=== PATIENT | female | born 1990 | race American Indian/Alaskan Native ===

== ENCOUNTER 2017-07-19 15:37 | Emergency (ER) | payer SELFPAY ==
[2017-07-19] MEDS ORDERED: NACL 0.9% 1000 ML 1,000 ML IV ONE (15:45)
[2017-07-19 16:15] LABS: Basophils % (Auto) 0.5 % (0.0-1.8); Eosinophils % (Auto) 0.3 % (0.0-4.3); Hematocrit 43.1 % (30.3-42.9); Hemoglobin 14.3 gm/dl (10.1-14.3); Lymphocytes # (Auto) 1.4 K/mm3 (1.2-5.4); Mean Corpuscular HGB Conc 33 % (30-34); Mean Corpuscular Hemoglobin 32 pg (28-32); Mean Corpuscular Volume 96 fl (79-97); Monocytes # (Auto) 0.3 K/mm3 (0.0-0.8); Monocytes % (Auto) 3.4 % (0.0-7.3); Platelet Count 271 K/mm3 (140-440); Red Blood Count 4.49 M/mm3 (3.65-5.03); Red Cell Distribution Width 13.3 % (13.2-15.2)
[2017-07-19 16:34] LABS: Alanine Aminotransferase 10 units/L (7-56); Albumin 4.9 g/dL (3.9-5); BUN/Creatinine Ratio 13; Blood Urea Nitrogen 8 mg/dL (7-17); Calcium 9.8 mg/dL (8.4-10.2); Hemolysis Index 6; Lipase 26 units/L (13-60)
[2017-07-19 16:35] LABS: INR 0.99 (0.87-1.13); Partial Thromboplastin Time 29.5 Sec. (24.2-36.6)
[2017-07-19] MEDS ORDERED: MORPHINE IV ONE ×2 (17:22→19:32)
[2017-07-19] MEDS ORDERED: ZOFRAN IV ONE (17:22)
[2017-07-19] MEDS ORDERED: PEPCID IV ONE (17:22)
--- NOTE | 2017-07-19 17:28 | Emergency Department Report ---
HPI - General Chief Complaint: GI Bleed Time Seen by Provider: 07/19/17 17:15 - HPI HPI: Room 7 The patient is a 26-year-old female presented with a chief complaint of abdominal pain. Patient states her pain began this morning pain in the epigastric/periumbilical region. Patient and his nausea and vomiting in addition to hematemesis. Patient states last bowel movement occurred earlier today and was within normal limits. The patient states she's had similar episodes in past and was diagnosed with gastritis. Patient states her last EGD occurred a few months ago. The patient gives her pain a score of 10/10 Location: [See above] Duration: One day Quality: Pain Severity:10/10 Modifying factors: [see above] Context: [see above] Mode of transportation: [not driving] ED Past Medical Hx - Past Medical History Previous Medical History?: Yes Hx GERD: Yes Additional medical history: Gastritis - Surgical History Past Surgical History?: No - Family History Family history: no significant - Social History Smoking Status: Current Every Day Smoker (1/14 pack per day) Substance Use Type: None (denies illicit drug use), Alcohol (occasional) - Medications Home Medications: Home Medications Medication Instructions Recorded Confirmed Last Taken Type Famotidine [Pepcid] 20 mg PO BID #20 tablet 07/19/17 Unknown Rx Promethazine [Phenergan TAB] 25 mg PO Q6HR PRN #20 tab 07/19/17 Unknown Rx Promethazine [Phenergan] 25 mg LA Q6HR PRN #5 supp.rect 07/19/17 Unknown Rx traMADol [Ultram] 50 mg PO Q6HR PRN #20 tablet 07/19/17 Unknown Rx ED Review of Systems ROS: Stated complaint: GASTRITIS Other details as noted in HPI Gastrointestinal: abdominal pain, nausea, vomiting, hematemesis Physical Exam - Physical Exam Vital Signs: Vital Signs 07/19/17 07/19/17 15:40 16:59 Temperature 97.3 F L Pulse Rate 79 Respiratory 18 13 Rate Blood Pressure 182/127 O2 Sat by Pulse 100 100 Oximetry Physical Exam: GENERAL: The patient is well-developed well-nourished female lying on stretcher appearing restless. [] HEENT: Normocephalic. Atraumatic. Extraocular motions are intact. Patient has moist mucous membranes. NECK: Supple. Trachea midline CHEST/LUNGS: Clear to auscultation. There is no respiratory distress noted. HEART/CARDIOVASCULAR: Regular. There is no tachycardia. There is no gallop rub or murmur. ABDOMEN: Abdomen is soft, nontender to palpation but patient points to the epigastric region as the source of her pain. Patient has normal bowel sounds. There is no abdominal distention. SKIN: There is no rash. There is no edema. There is no diaphoresis. NEURO: The patient is awake, alert, and oriented. The patient is cooperative. The patient has normal speech MUSCULOSKELETAL: There is no evidence of acute injury. ED Course Vital Signs 07/19/17 07/19/17 15:40 16:59 Temperature 97.3 F L Pulse Rate 79 Respiratory 18 13 Rate Blood Pressure 182/127 O2 Sat by Pulse 100 100 Oximetry ED Medical Decision Making - Lab Data Result diagrams: 07/19/17 15:57 07/19/17 15:57 Laboratory Tests 07/19/17 07/19/17 07/19/17 15:57 15:57 15:57 WBC 7.7 RBC 4.49 Hgb 14.3 Hct 43.1 H MCV 96 MCH 32 MCHC 33 RDW 13.3 Plt Count 271 Lymph % (Auto) 18.0 [place] % (Auto) 3.4 Eos % (Auto) 0.3 Baso % (Auto) 0.5 Lymph # 1.4 [place] # 0.3 Eos # 0.0 Baso # 0.0 Seg Neutrophils % 77.8 H Seg Neutrophils # 6.0 PT 13.6 INR 0.99 APTT 29.5 Sodium 142 Potassium 3.8 Chloride 101.1 Carbon Dioxide 27 Anion Gap 18 BUN 8 Creatinine 0.6 L Estimated GFR > 60 BUN/Creatinine Ratio 13 Glucose 113 H Calcium 9.8 Total Bilirubin 0.50 AST 18 ALT 10 Alkaline Phosphatase 62 Total Protein 7.1 Albumin 4.9 Albumin/Globulin Ratio 2.2 Lipase 26 Urine Color Urine Turbidity Urine pH Ur Specific Onset Urine Protein Urine Glucose (UA) Urine Ketones Urine Blood Urine Nitrite Urine Bilirubin Urine Urobilinogen Ur Leukocyte Esterase Urine WBC (Auto) Urine RBC (Auto) U Epithel Cells (Auto) Urine Mucus Urine HCG, Qual Blood Type Antibody Screen 07/19/17 07/19/17 15:57 18:07 WBC RBC Hgb Hct MCV MCH MCHC RDW Plt Count Lymph % (Auto) [place] % (Auto) Eos % (Auto) Baso % (Auto) Lymph # [place] # Eos # Baso # Seg Neutrophils % Seg Neutrophils # PT INR APTT Sodium Potassium Chloride Carbon Dioxide Anion Gap BUN Creatinine Estimated GFR BUN/Creatinine Ratio Glucose Calcium Total Bilirubin AST ALT Alkaline Phosphatase Total Protein Albumin Albumin/Globulin Ratio Lipase Urine Color Yellow Urine Turbidity Clear Urine pH 9.0 H Ur Specific Onset 1.015 Urine Protein 30 mg/dl Urine Glucose (UA) Neg Urine Ketones 20 Urine Blood Mod Urine Nitrite Neg Urine Bilirubin Neg Urine Urobilinogen < 2.0 Ur Leukocyte Esterase Neg Urine WBC (Auto) < 1.0 Urine RBC (Auto) 3.0 U Epithel Cells (Auto) 3.0 Urine Mucus Few Urine HCG, Qual Negative Blood Type B POSITIVE Antibody Screen Negative - Radiology Data Radiology results: report reviewed (CT abdomen and pelvis), image reviewed (CT abdomen and pelvis) FINAL REPORT PROCEDURE: CT abdomen and pelvis with contrast. TECHNIQUE: Computerized axial tomography of the abdomen and pelvis was performed after the IV injection of iodinated nonionic contrast. HISTORY: Epigastric abdominal pain, hematemesis. COMPARISON: No prior studies are available for comparison. FINDINGS: The lung bases are clear. There are no pleural effusions. The heart size is normal. The liver, spleen and pancreas appear normal. The gallbladder is present. The adrenal glands are not enlarged. Both kidneys appear normal in size and configuration. The abdominal aorta has a normal caliber. There is no retroperitoneal adenopathy. The unopacified gastrointestinal tract is unremarkable. A normal appendix is visible. The bladder, uterus and adnexal regions appear normal. The regional skeleton appears intact. IMPRESSION: Normal studies of the abdomen and pelvis. Transcribed By: MRM Dictated By: ALEXANDRU VIERA MD Electronically Authenticated By: ALEXANDRU VIERA MD Signed Date/Time: 07/19/17 154 DD/ 40 TD/TT: 07/19/171540 - Differential Diagnosis gastritis, pancreatitis, peptic ulcer disease, malingering Critical care attestation.: If time is entered above; I have spent that time in minutes in the direct care of this critically ill patient, excluding procedure time. ED Disposition Clinical Impression: Abdominal pain, Nausea & vomiting Disposition: - TO HOME OR SELFCARE Is pt being admited?: No Does the pt Need Aspirin: No Condition: Stable Instructions: Acute Abdominal Pain (ED) Additional Instructions: Return to the emergency department immediately should you develop worsening symptoms, fever, inability to tolerate food or liquid or any other concerns. 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 Please follow-up with him for further evaluation) Forms: Accompanied Note Time of Disposition: 20:08
[2017-07-19 18:22] LABS: Bilirubin,Urine NEG (Negative); Blood,Urine MOD (Negative); Color,Urine Yellow (Yellow); Mucus,Urine FEW /HPF; Urobilinogen,Urine < 2.0 mg/dL (<2.0); WBC,Urine < 1.0 /HPF (0.0-6.0)
[2017-07-19 18:29] LABS: HCG Qualitative,Urine Negative (Negative)
--- NOTE | 2017-07-19 19:45 | Cat Scan Report ---
FINAL REPORT PROCEDURE: CT abdomen and pelvis with contrast. TECHNIQUE: Computerized axial tomography of the abdomen and pelvis was performed after the IV injection of iodinated nonionic contrast. HISTORY: Epigastric abdominal pain, hematemesis. COMPARISON: No prior studies are available for comparison. FINDINGS: The lung bases are clear. There are no pleural effusions. The heart size is normal. The liver, spleen and pancreas appear normal. The gallbladder is present. The adrenal glands are not enlarged. Both kidneys appear normal in size and configuration. The abdominal aorta has a normal caliber. There is no retroperitoneal adenopathy. The unopacified gastrointestinal tract is unremarkable. A normal appendix is visible. The bladder, uterus and adnexal regions appear normal. The regional skeleton appears intact. IMPRESSION: Normal studies of the abdomen and pelvis.
[2017-07-19 20:52] VITALS: BP 129/94
== END 2017-07-19 20:52 | disposition home or self-care (01) ==
LOC: ED 15:37
DX: R10.13 Epigastric pain (principal); R10.33 Periumbilical pain; R11.2 Nausea with vomiting, unspecified; K21.9 Gastro-esophageal reflux disease without esophagitis; F17.210 Nicotine dependence, cigarettes, uncomplicated
CPT/HCPCS: 36415; 74177; 80053; 81001; 81025; 83690; 85025; 85610; 85730; 86850; 86900; 86901; 93005; 93010; 96374; 96375; 96376; 99284; J2270; J2405; Q9967; 82271